=== PATIENT | male | born 1955 | race Caucasian/White ===

== ENCOUNTER → 2017-02-22 | Outpatient (CLI) | payer OTHER ==
[~2017-02-22] MED LIST: AGGRENOX 25 MG-1 CER PO; ATENOLOL25 MG PO; BAYER GENUINE325 MG PO; BROVANA15 MCG/2 M INH; CAMBIA50 MG PO; CRESTOR10 MG PO; IBUPROFEN200 M1 PO; NORFLEX100 MG PO; PIROXICAN20 MG PO; PRAVACHOL20 MG PO; PREDNISONE1 MG PO; PREDNISONE5 MG PO; PRILOSEC40 MG PO; PYRIDIUM200 MG PO; RELPAX40 MG PO; SYNTHROID,LEV100 MCG PO; VICODIN 5/500 505 MG PO; VITAMIN D400 I1 PO; ZETIA10 MG PO; ZONISAMIDE100 MG PO
== END | disposition home or self-care (01) ==
LOC: US 09:10
DX: M79.661 Pain in right lower leg (principal); R60.0 Localized edema

== ENCOUNTER → 2017-07-22 | Outpatient (CLI) | payer OTHER | END | disposition home or self-care (01) | LOC: RAD 13:23 | DX: A69.20 Lyme disease, unspecified (principal); M19.90 Unspecified osteoarthritis, unspecified site; Z79.52 Long term (current) use of systemic steroids; Z85.51 Personal history of malignant neoplasm of bladder ==

== ENCOUNTER → 2017-08-03 | Outpatient (CLI) | payer OTHER | END | disposition home or self-care (01) | LOC: RAD 11:24 | DX: M54.40 Lumbago with sciatica, unspecified side (principal) ==

== ENCOUNTER → 2017-08-27 | Outpatient (CLI) | payer OTHER | END | disposition home or self-care (01) | LOC: MRI 06:18 | DX: M51.26 Other intervertebral disc displacement, lumbar region (principal); M48.061 Spinal stenosis, lumbar region without neurogenic claudication; M47.896 Other spondylosis, lumbar region ==

== ENCOUNTER 2018-03-02 05:57 | Inpatient (IN) | payer OTHER ==
[~2018-03-02] VITALS: Ht 170.2 cm; Wt 96.3 kg
[2018-03-02] VITALS (15 sets, daily range): BP systolic 98–155; BP diastolic 52–92
[2018-03-02 06:19] LABS: BASO % 0.6 % (0.0-1.0); EOS # 0.3 10*3/uL (0.0-0.4); EOS % 4.2 % (1.0-4.0); HEMATOCRIT 41.3 % (42.0-52.0); HEMOGLOBIN 14.3 g/dl (14.0-18.0); LYMPH # 2.3 10*3/uL (1.3-4.4); LYMPH % 32.3 % (27.0-41.0); MEAN CELL VOLUME 92.4 fl (80.0-94.0); MEAN CORPUSCULAR HGB CONC 34.6 g/dl (33.0-37.0); MEAN PLATELET VOLUME 9.7 fl (9.6-12.3); MONO # 0.8 10*3/uL (0.1-1.0); MONO % 10.9 % (3.0-9.0); NEUT # 3.6 10*3/uL (2.3-7.9); NEUT % 51.4 % (47.0-73.0); PLATELET COUNT AUTOMATED 184 10*3/uL (130-400); RED BLOOD COUNT 4.47 10*6/uL (4.50-5.90); RED CELL DISTRI WIDTH 12.7 % (0-14.5)
[2018-03-02 06:25] LABS: ACT PARTIAL THROMBO TIME 23.5 SECONDS (20.8-31.5)
[2018-03-02] MEDS ORDERED: TIROSINT88 MCG PO (06:28)
[2018-03-02] MEDS ORDERED: MILLIPRED5 MG PO (06:29)
[2018-03-02 06:38] LABS: ALBUMIN 3.6 gm/dl (3.1-4.5); ALKALINE PHOSPHATASE 53 U/L (45-117); BUN 16 mg/dl (7-24); CHLORIDE 107 mmol/L (98-107); CREATININE 1.19 mg/dL (0.70-1.30); POTASSIUM 3.7 mmol/L (3.5-5.1); SGOT/AST 19 IU/L (3-35); SGPT/ALT 21 U/L (12-78); SODIUM 140 mmol/L (136-145); TOTAL PROTEIN 6.6 gm/dL (6.4-8.2)
[2018-03-02 06:39] LABS: TROPONIN I 0.042 ng/ml (<0.045)
[2018-03-03] VITALS: BP 116/79
[2018-03-03 06:26] LABS: BASO # 0.1 10*3/uL (0.0-0.1); BASO % 0.7 % (0.0-1.0); EOS # 0.3 10*3/uL (0.0-0.4); EOS % 3.6 % (1.0-4.0); HEMOGLOBIN 16.2 g/dl (14.0-18.0); LYMPH # 3.1 10*3/uL (1.3-4.4); LYMPH % 32.7 % (27.0-41.0); MEAN CELL VOLUME 94.2 fl (80.0-94.0); MEAN CORPUSCULAR HGB 32.2 pg (27.0-31.0); MEAN CORPUSCULAR HGB CONC 34.2 g/dl (33.0-37.0); MEAN PLATELET VOLUME 9.5 fl (9.6-12.3); MONO # 0.9 10*3/uL (0.1-1.0); MONO % 9.5 % (3.0-9.0); NEUT # 5.1 10*3/uL (2.3-7.9); NEUT % 53.3 % (47.0-73.0); PLATELET COUNT AUTOMATED 238 10*3/uL (130-400); RED BLOOD COUNT 5.03 10*6/uL (4.50-5.90); RED CELL DISTRI WIDTH 12.9 % (0-14.5); WHITE BLOOD COUNT 9.6 10*3/uL (4.8-10.8)
[2018-03-03 06:46] LABS: BUN 13 mg/dl (7-24); CHLORIDE 105 mmol/L (98-107); CHOLESTEROL 270 mg/dL (<200); CREATININE 1.26 mg/dL (0.70-1.30); HDL CHOLESTEROL 57 mg/dl (40-60); LDL CHOLESTEROL 157 mg/dL (9-159); PHOSPHOROUS 3.6 mg/dL (2.5-4.9); POTASSIUM 3.8 mmol/L (3.5-5.1); SODIUM 141 mmol/L (136-145); TRIGLYCERIDES 278 mg/dl (<150); VLDL CHOLESTEROL 56 mg/dL (6-40)
[2018-03-03 06:49] LABS: HEMATOCRIT 47.4 % (42.0-52.0)
[2018-03-03 06:52] LABS: THYROID STIM HORMONE (HS) 0.814 uIU/ml (0.358-4.75)
[2018-03-03 06:58] LABS: TROPONIN I 0.046 ng/ml (<0.045)
[2018-03-03 07:54] LABS: VITAMIN D, 25-HYDROXY 60.1 ng/mL (30-100)
[2018-03-03 08:00] VITALS: BP 130/83
[2018-03-03 12:00] VITALS: BP 127/80
[2018-03-03 16:00] VITALS: BP 137/84
[2018-03-03] MEDS ORDERED: FENOFIBRATE40 MG PO (16:49)
== END 2018-03-03 17:23 | disposition home or self-care (01) | DRG 313 ==
LOC: ED 05:57 → EDHOLD 06:39 → 4E 06:39
PROVIDERS: Emergency Medicine Emergency Medical Services; Student in an Organized Health Care Education/Training Program
PROC: 4A02XM4 Measurement of Cardiac Total Activity, External Approach (ICD-10-PCS; principal; 2018-03-03)
DX: R07.9 Chest pain, unspecified (principal); I25.10 Atherosclerotic heart disease of native coronary artery without angina pectoris; D72.1 Eosinophilia; I25.2 Old myocardial infarction; E83.51 Hypocalcemia; R74.8 Abnormal levels of other serum enzymes; R73.9 Hyperglycemia, unspecified; D72.821 Monocytosis (symptomatic); E78.5 Hyperlipidemia, unspecified; E03.9 Hypothyroidism, unspecified; H40.9 Unspecified glaucoma; G43.909 Migraine, unspecified, not intractable, without status migrainosus; Z88.8 Allergy status to other drugs, medicaments and biological substances; Z79.899 Other long term (current) drug therapy; Z79.82 Long term (current) use of aspirin; Z85.51 Personal history of malignant neoplasm of bladder; Z86.73 Personal history of transient ischemic attack (TIA), and cerebral infarction without residual deficits; Z82.49 Family history of ischemic heart disease and other diseases of the circulatory system; Z83.3 Family history of diabetes mellitus; Z84.89 Family history of other specified conditions; Z80.8 Family history of malignant neoplasm of other organs or systems; Z90.49 Acquired absence of other specified parts of digestive tract

== ENCOUNTER 2018-05-31 10:41 | Emergency (ER) | payer OTHER ==
[~2018-05-31] VITALS: Wt 95.3 kg
[~2018-05-31 10:41] MED LIST changes: +FENOFIBRATE40 MG PO; +MILLIPRED5 MG PO; +TIROSINT88 MCG PO
[2018-05-31 10:44] VITALS: BP 132/76
== END 2018-05-31 12:50 | disposition home or self-care (01) ==
LOC: ED 10:41
DX: M70.841 Other soft tissue disorders related to use, overuse and pressure, right hand (principal); Z88.8 Allergy status to other drugs, medicaments and biological substances; Z79.899 Other long term (current) drug therapy; Z90.49 Acquired absence of other specified parts of digestive tract; Y93.H3 Activity, building and construction

== ENCOUNTER 2018-11-23 16:45 | Inpatient (IN) | payer OTHER ==
[~2018-11-23] VITALS: Ht 170.1 cm; Wt 96.7 kg
--- NOTE | ~2018-11-23 | EKG ---
[place], [place] ELECTROCARDIOGRAM REPORT NAME: MAX VEGA UNIT #: [id number] ROOM: 403 DOCTOR: DEEPALI DRAFT REPORT BIRTHDATE: [birth year] [facility] Test Date: 2018-11-23 Test Time: 22:42:43 Pat Name: MAX VEGA Department: Room: 403 Gender: M Mud Worker: Beth Tang : 1955 Requested By: AYUSH COLE Order Number: [id number] Reading MD: Jules Carpenter MD Measurements Intervals [place] Rate: 56 P: 51 RI: 176 QRS: 4 QRSD: 79 T: 14 QT: 400 QTc: 387 Interpretive Statements Sinus rhythm Baseline wander in lead(s) V2,V3 No change from earlier ECG this date Electronically Signed On 11-24-2018 17:10:55 PST by Jules Carpenter MD CM:EKGRPT:ELECTROCARDIOGRAM REPORT 1710 AYUSH PALUMBO DRAFT REPORT AYUSH COLE MD
--- NOTE | ~2018-11-23 | EKG ---
[place], [place] ELECTROCARDIOGRAM REPORT NAME: MAX VEGA UNIT #: [id number] ROOM: 403 DOCTOR: DEEPALI DRAFT REPORT BIRTHDATE: [birth year] [facility] Test Date: 2018-11-24 Test Time: 04:32:56 Pat Name: MAX VEGA Department: Room: 403 2 Gender: M Boot Turner: Jamar Chavez : 1955 Requested By: WOODY RILEY Order Number: [id number] Reading MD: Jules Carpenter MD Measurements Intervals [place] Rate: 81 P: 45 ID: 169 QRS: 5 QRSD: 82 T: 29 QT: 370 QTc: 430 Interpretive Statements Sinus rhythm Probable left atrial enlargement Baseline wander in lead(s) V3 No change from earlier ECG this date Electronically Signed On 11-24-2018 17:15:01 PST by Jules Carpenter MD CM:[email or web address]:ELECTROCARDIOGRAM REPORT [id number] 1715 WOODY CRUZ DRAFT REPORT WOODY RILEY DO
--- NOTE | ~2018-11-23 | EKG ---
[place], [place] ELECTROCARDIOGRAM REPORT NAME: MAX VEGA UNIT #: [id number] ROOM: 403 DOCTOR: DEEPALI DRAFT REPORT BIRTHDATE: [birth year] [facility] Test Date: 2018-11-23 Test Time: 19:32:32 Pat Name: MAX VEGA Department: Room: 403 Gender: M Medical Safety Director: Beth Tang : 1955 Requested By: AYUSH COLE Order Number: [id number] Reading MD: Jules Carpenter MD Measurements Intervals [place] Rate: 62 P: 42 NE: 168 QRS: -5 QRSD: 81 T: 15 QT: 393 QTc: 399 Interpretive Statements Sinus rhythm Probable left atrial enlargement Baseline wander in lead(s) V3 No change from earlier ECG this date Electronically Signed On 11-24-2018 17:02:14 PST by Jules Carpenter MD CM:EKGRPT:ELECTROCARDIOGRAM REPORT 31 AYUSH PALUMBO DRAFT REPORT AYUSH COLE MD
--- NOTE | ~2018-11-23 | EKG ---
[place], [place] ELECTROCARDIOGRAM REPORT NAME: MAX VEGA UNIT #: [id number] ROOM: 403 DOCTOR: DEEPALI DRAFT REPORT BIRTHDATE: [birth year] [facility] Test Date: 2018-11-23 Test Time: 16:47:31 Pat Name: MAX VEGA Department: Room: 403 Gender: M Data Entry Specialist: Beth Tang : 1955 Requested By: AYUSH COLE Order Number: [id number] Reading MD: Jules Carpenter MD Measurements Intervals [place] Rate: 64 P: 47 KS: 175 QRS: 0 QRSD: 82 T: 17 QT: 380 QTc: 392 Interpretive Statements Sinus rhythm Probable left atrial enlargement Baseline wander in lead(s) II,III,aVF Electronically Signed On 11-24-2018 16:55:49 PST by Jules Carpenter MD CM:EKGRPT:ELECTROCARDIOGRAM REPORT 1647 1655 AYUSH COLE MD EPIPHIVONNE DRAFT REPORT AYUSH COLE MD
[2018-11-23 16:45] VITALS: BP 147/94
[2018-11-23 16:50] VITALS: BP 146/94
[2018-11-23 17:22] LABS: BASO % 0.5 % (0.0-1.0); EOS # 0.2 10*3/uL (0.0-0.4); EOS % 2.4 % (1.0-4.0); HEMATOCRIT 46.5 % (42.0-52.0); HEMOGLOBIN 16.4 g/dl (14.0-18.0); LYMPH # 2.5 10*3/uL (1.3-4.4); LYMPH % 29.7 % (27.0-41.0); MEAN CELL VOLUME 94.9 fl (80.0-94.0); MEAN CORPUSCULAR HGB 33.5 pg (27.0-31.0); MEAN CORPUSCULAR HGB CONC 35.3 g/dl (33.0-37.0); MEAN PLATELET VOLUME 9.7 fl (9.6-12.3); MONO # 0.8 10*3/uL (0.1-1.0); MONO % 8.8 % (3.0-9.0); NEUT % 58.4 % (47.0-73.0); PLATELET COUNT AUTOMATED 215 10*3/uL (130-400); RED CELL DISTRI WIDTH 12.8 % (0-14.5); WHITE BLOOD COUNT 8.5 10*3/uL (4.8-10.8)
[2018-11-23 17:26] VITALS: BP 138/92
[2018-11-23 17:30] LABS: ACT PARTIAL THROMBO TIME 22.4 SECONDS (20.8-31.5); INTERNATIONAL NORM RATIO 0.9 (2.0-3.5)
[2018-11-23 17:38] LABS: ALBUMIN 4.1 gm/dl (3.1-4.5); ALKALINE PHOSPHATASE 65 U/L (45-117); BUN 12 mg/dl (7-24); CHLORIDE 106 mmol/L (98-107); CREATININE 1.25 mg/dL (0.70-1.30); POTASSIUM 4.3 mmol/L (3.5-5.1); SGOT/AST 14 IU/L (3-35); SGPT/ALT 28 U/L (12-78); SODIUM 141 mmol/L (136-145); TOTAL PROTEIN 7.7 gm/dL (6.4-8.2)
[2018-11-23 17:42] LABS: TROPONIN I 0.047 ng/ml (<0.045)
--- NOTE | 2018-11-23 17:43 | NUR ---
STEPHY DOMINGUEZ NOTIFIED OF CRITICAL LAB RESULT
[2018-11-23 18:22] VITALS: BP 141/89
--- NOTE | 2018-11-23 18:26 | NUR ---
ATTEMPTED TO CALL AND INFORM NURSE THAT PATIENT WOULD BE TRANSPORTED UPSTAIRS.... NO ANSWER.
[2018-11-23 19:22] VITALS: BP 140/90
--- NOTE | 2018-11-23 19:22 | NUR ---
ATTEMPT TO CALL RN AGAIN WITHOUT ANSWER. PT IS STABLE AND READY FOR TRANSPORT TO ADMISSION BED.
--- NOTE | 2018-11-23 19:51 | NUR ---
Time: 1947 A 63 year old MALE admitted to 4E under services of RALPH BERNARDO DO. Pt. arrived via wheel chair from ER. Chief complaint: CHEST PAIN. OLGA GONZALES
[2018-11-23] MEDS ORDERED: CAMBIA50 MG PO (19:57)
[2018-11-23] MEDS ORDERED: VITAMIN D32000 UNI1 PO (19:58)
[2018-11-23] MEDS ORDERED: ELETRIPTAN HBR40 MG PO (19:58)
[2018-11-23 20:00] VITALS: BP 127/91
--- NOTE | 2018-11-23 20:00 | NUR ---
MED REC COMPLETED WITH PATIENT ALERT AND ORIENTED TO PERSON PLACE AND TIME. AT BEDSIDE
--- NOTE | 2018-11-23 20:18 | NUR ---
DR RILEY AWARE OF CRITICAL TROPONIN. ALSO MADE AWARE OF MED REC BEING UP TO DATE
--- NOTE | 2018-11-23 20:21 | NUR ---
DR SOSA'S ANSWERING SERVICE AWARE OF CONSULT. CALL BACK REQUESTED
--- NOTE | 2018-11-23 20:31 | NUR ---
DR SOSA AWARE OF CONSULT. ORDERS TAKEN
--- NOTE | 2018-11-23 23:01 | NUR ---
DR RILEY AWARE OF CRITICAL TROPONIN
[2018-11-24] VITALS: BP 123/83
--- NOTE | 2018-11-24 04:27 | NUR ---
MEDICATED WITH PRN TYLENOL FOR C/O HEADACHE RATED 9/10 ON A 0/10 PAIN SCALE
--- NOTE | 2018-11-24 04:29 | NUR ---
2L 02 NC APPLIED FOR C/O CHEST PAIN. STAT EKG ORDERED.
[2018-11-24 04:31] VITALS: BP 117/79
--- NOTE | 2018-11-24 04:31 | NUR ---
DR RILEY AWARE OF PATIENT C/O NAUSEA, AND VOMITTING. STATES HE WILL COME AND SEE THE PATIENT
--- NOTE | 2018-11-24 04:38 | NUR ---
DR RILEY AT BEDSIDE
--- NOTE | 2018-11-24 05:10 | NUR ---
PATIENT HAD LARGE EMESIS. GREEN AND YELLOW IN COLOR. STATES HEADACHE HAS BEEN RELIEVED A LITTLE BIT. DENIES CHEST PAIN.
--- NOTE | 2018-11-24 05:39 | NUR ---
PATIENT STATSE THAT HE WOULD LIKE TO WAIT TO PUT THE NITRO PASTE ON. CURRENT NITRO PASTE REMOVED. PATIENT STATES THE TYLENOL IS HELPING WITH HIS HEADACHE. DENIES CHEST PAIN AT THIS TIME. WILL MONITOR. BED IN LOWEST POSITION. CALL LIGHT IN REACH
[2018-11-24 06:05] LABS: BUN 15 mg/dl (7-24); CHLORIDE 105 mmol/L (98-107); PHOSPHOROUS 3.8 mg/dL (2.5-4.9); POTASSIUM 3.9 mmol/L (3.5-5.1); SODIUM 140 mmol/L (136-145)
[2018-11-24 06:07] LABS: TROPONIN I 0.041 ng/ml (<0.045)
[2018-11-24 06:08] LABS: BASO # 0.1 10*3/uL (0.0-0.1); BASO % 0.7 % (0.0-1.0); EOS # 0.2 10*3/uL (0.0-0.4); EOS % 2.6 % (1.0-4.0); HEMATOCRIT 43.8 % (42.0-52.0); LYMPH # 1.7 10*3/uL (1.3-4.4); LYMPH % 19.9 % (27.0-41.0); MEAN CELL VOLUME 96.5 fl (80.0-94.0); MEAN CORPUSCULAR HGB CONC 34.2 g/dl (33.0-37.0); MEAN PLATELET VOLUME 9.9 fl (9.6-12.3); MONO # 0.6 10*3/uL (0.1-1.0); MONO % 7.5 % (3.0-9.0); NEUT # 5.9 10*3/uL (2.3-7.9); NEUT % 68.8 % (47.0-73.0); PLATELET COUNT AUTOMATED 190 10*3/uL (130-400); RED BLOOD COUNT 4.54 10*6/uL (4.50-5.90); RED CELL DISTRI WIDTH 13.1 % (0-14.5); WHITE BLOOD COUNT 8.5 10*3/uL (4.8-10.8)
[2018-11-24 08:00] VITALS: BP 142/78
--- NOTE | 2018-11-24 09:00 | NUR ---
Cook Short Order in to talk to patient. Patient states lives at home with . There are few steps in the home. Physician: ariela torres Pharmacy: [facility]: none Patient's level of ADLs: INDEPENDENT Patient has working utilities: all working DME: none Follow-up physician's appointment after d/c: will be made by hospitalist nurse director upon discharge Does patient want to access PORTAL?: no Discharge plan discussed with patient, patient lives at home with , he is independent in adls and ambulation works, drives,patient states he will be. going home when able and denies any home needs ELE SHAIKH
--- NOTE | 2018-11-24 09:15 | NUR ---
PATIENT HAD EMESIS. APPROX 250ML. WILL MONITOR.
--- NOTE | 2018-11-24 09:40 | NUR ---
ZOFRAN ADMINISTERED FOR NAUSEA AND VOMITING. WILL MONITOR FOR EFFECTIVENESS.
--- NOTE | 2018-11-24 10:38 | NUR ---
PATIENT REQUESTING MEDICATION FOR HEADACHE. NORCO ADMINISTERED PRESCRIBED. WILL MONITOR FOR EFFECTIVENESS.
[2018-11-24 12:00] VITALS: BP 140/84
--- NOTE | 2018-11-24 12:00 | NUR ---
PATIENT REFUSING NITRO-NID AT THIS TIME. STATES THAT IT GIVES HIM A HEADACHE AND NAUSEA. DR RYAN AWARE.
--- NOTE | 2018-11-24 12:16 | NUR ---
PHENERGAN ADMINISTERED FOR NAUSEA/VOMITING. WILL MONITOR FOR EFFECTIVENESS.
[2018-11-24 16:00] VITALS: BP 126/73
[2018-11-24 20:00] VITALS: BP 138/90
[2018-11-25] VITALS: BP 118/84
--- NOTE | 2018-11-25 06:37 | NUR ---
NURSE TO NURSE REPORT GIVEN TO NADIRA AT [facility] CLAIM PROCESSOR AT THIS TIME. ALL QUESTIONS ANSWERED
[2018-11-25 07:33] LABS: BUN 15 mg/dl (7-24); CHLORIDE 105 mmol/L (98-107); CREATININE 1.31 mg/dL (0.70-1.30); POTASSIUM 3.9 mmol/L (3.5-5.1); SODIUM 141 mmol/L (136-145)
--- NOTE | 2018-11-25 07:48 | NUR ---
PATIENT TRANSPORTED TO [facility]IA [facility]. BELONGINGS SENT WITH PATIENT. MONITOR REMOVED.
== END 2018-11-25 07:48 | disposition other institution (70) | DRG 303 ==
LOC: ED 16:45 → EDHOLD 18:05 → 4E 18:05
PROVIDERS: Emergency Medicine; Student in an Organized Health Care Education/Training Program; ADMIT Internal Medicine
DX: I25.110 Atherosclerotic heart disease of native coronary artery with unstable angina pectoris (principal); I24.8 Other forms of acute ischemic heart disease; R07.9 Chest pain, unspecified; D75.89 Other specified diseases of blood and blood-forming organs; E83.41 Hypermagnesemia; R00.1 Bradycardia, unspecified; H40.9 Unspecified glaucoma; E78.5 Hyperlipidemia, unspecified; E03.9 Hypothyroidism, unspecified; M35.3 Polymyalgia rheumatica; C67.9 Malignant neoplasm of bladder, unspecified; Z90.49 Acquired absence of other specified parts of digestive tract; G56.00 Carpal tunnel syndrome, unspecified upper limb; Z84.1 Family history of disorders of kidney and ureter; Z83.3 Family history of diabetes mellitus; Z88.9 Allergy status to unspecified drugs, medicaments and biological substances; Z79.82 Long term (current) use of aspirin; G43.909 Migraine, unspecified, not intractable, without status migrainosus

== ENCOUNTER → 2019-06-08 | Outpatient (CLI) | payer OTHER ==
[~2019-06-08] MED LIST changes: +ELETRIPTAN HBR40 MG PO; +VITAMIN D32000 UNI1 PO
[2019-06-08 08:35] LABS: HEMATOCRIT 47.4 % (42.0-52.0); HEMOGLOBIN 15.9 g/dl (14.0-18.0); MEAN CELL VOLUME 99.2 fl (80.0-94.0); MEAN CORPUSCULAR HGB 33.3 pg (27.0-31.0); MEAN CORPUSCULAR HGB CONC 33.5 g/dl (33.0-37.0); MEAN PLATELET VOLUME 10.3 fl (9.6-12.3); RED BLOOD COUNT 4.78 10*6/uL (4.50-5.90); RED CELL DISTRI WIDTH 12.7 % (0-14.5); WHITE BLOOD COUNT 9.6 10*3/uL (4.8-10.8)
[2019-06-08 08:42] LABS: ALBUMIN 3.7 gm/dl (3.1-4.5); ALKALINE PHOSPHATASE 59 U/L (45-117); BUN 13 mg/dl (7-24); CHLORIDE 108 mmol/L (98-107); CHOLESTEROL 229 mg/dL (<200); CREATININE 1.23 mg/dL (0.70-1.30); HDL CHOLESTEROL 72 mg/dl (40-60); LDL CHOLESTEROL 141 mg/dL (9-159); POTASSIUM 4.5 mmol/L (3.5-5.1); SGOT/AST 14 IU/L (3-35); SGPT/ALT 20 U/L (12-78); SODIUM 141 mmol/L (136-145); TOTAL PROTEIN 6.9 gm/dL (6.4-8.2); TRIGLYCERIDES 80 mg/dl (<150); VLDL CHOLESTEROL 16 mg/dL (6-40)
[2019-06-08 09:02] LABS: FREE T4 0.72 ng/dl (0.76-1.46)
== END | disposition home or self-care (01) ==
LOC: LAB 07:19
PROVIDERS: Physician Assistant
DX: Z12.5 Encounter for screening for malignant neoplasm of prostate (principal); R07.9 Chest pain, unspecified

== ENCOUNTER → 2021-01-03 | Outpatient (CLI) | payer OTHER | END | disposition home or self-care (01) | LOC: COVID19 08:16 | PROVIDERS: ATTEND Surgery | DX: Z01.812 Encounter for preprocedural laboratory examination (principal); Z20.822 Contact with and (suspected) exposure to COVID-19 ==

== ENCOUNTER → 2021-01-08 | Day surgery (SDC) | payer OTHER ==
[~2021-01-08] VITALS: Ht 170.1 cm; Wt 92.1 kg
[2021-01-08 06:47] VITALS: BP 123/83
[2021-01-08 07:44] VITALS: BP 111/61
[2021-01-08 08:00] VITALS: BP 123/83
[2021-01-08 08:26] VITALS: BP 129/93
== END ==
LOC: SDC 10-30 08:45
PROVIDERS: ATTEND Surgery
DX: K62.5 Hemorrhage of anus and rectum (principal); D12.0 Benign neoplasm of cecum; K57.30 Diverticulosis of large intestine without perforation or abscess without bleeding; K64.8 Other hemorrhoids; I10 Essential (primary) hypertension; I25.10 Atherosclerotic heart disease of native coronary artery without angina pectoris; Z86.73 Personal history of transient ischemic attack (TIA), and cerebral infarction without residual deficits; G43.909 Migraine, unspecified, not intractable, without status migrainosus; E03.9 Hypothyroidism, unspecified; Z79.899 Other long term (current) drug therapy

== ENCOUNTER 2021-03-19 08:30 | Emergency (ER) | payer OTHER ==
[~2021-03-19] VITALS: Ht 170.1 cm; Wt 90.7 kg
[2021-03-19 08:35] VITALS: BP 132/84
[2021-03-19] MEDS ORDERED: PREDNISONE20 M1 PO (14:45)
[2021-03-19] MEDS ORDERED: METHOCARBAMOL500 M1 PO (14:45)
== END 2021-03-19 15:03 | disposition home or self-care (01) ==
LOC: ED 08:30
DX: S39.91XA Unspecified injury of abdomen, initial encounter (principal); Z88.8 Allergy status to other drugs, medicaments and biological substances; Z79.899 Other long term (current) drug therapy; Z79.82 Long term (current) use of aspirin; Z98.890 Other specified postprocedural states; Z90.49 Acquired absence of other specified parts of digestive tract; X58.XXXA Exposure to other specified factors, initial encounter; Y93.89 Activity, other specified; Y92.89 Other specified places as the place of occurrence of the external cause; Y99.8 Other external cause status

== ENCOUNTER 2021-08-17 09:26 | Emergency (ER) | payer OTHER ==
[~2021-08-17] VITALS: Ht 170.1 cm; Wt 88.5 kg
[~2021-08-17 09:26] MED LIST changes: +METHOCARBAMOL500 M1 PO; +PREDNISONE20 M1 PO
[2021-08-17 09:30] VITALS: BP 135/80
[2021-08-17 10:03] LABS: BASO % 0.4 % (0.0-1.0); EOS # 0.1 10*3/uL (0.0-0.4); EOS % 0.5 % (1.0-4.0); HEMATOCRIT 44.9 % (42.0-52.0); LYMPH # 1.7 10*3/uL (1.3-4.4); LYMPH % 18.3 % (27.0-41.0); MEAN CELL VOLUME 98.5 fl (80.0-94.0); MEAN CORPUSCULAR HGB 33.1 pg (27.0-31.0); MEAN CORPUSCULAR HGB CONC 33.6 g/dl (33.0-37.0); MEAN PLATELET VOLUME 9.9 fl (9.6-12.3); MONO # 0.6 10*3/uL (0.1-1.0); MONO % 6.5 % (3.0-9.0); NEUT # 6.9 10*3/uL (2.3-7.9); PLATELET COUNT AUTOMATED 202 10*3/uL (130-400); RED BLOOD COUNT 4.56 10*6/uL (4.50-5.90); RED CELL DISTRI WIDTH 12.3 % (0-14.5); WHITE BLOOD COUNT 9.4 10*3/uL (4.8-10.8)
[2021-08-17 10:22] LABS: ALBUMIN 3.8 gm/dl (3.1-4.5); ALKALINE PHOSPHATASE 54 U/L (45-117); BUN 26 mg/dl (7-24); CHLORIDE 109 mmol/L (98-107); CREATININE 1.19 mg/dL (0.70-1.30); POTASSIUM 4.1 mmol/L (3.5-5.1); SGOT/AST 25 IU/L (3-35); SGPT/ALT 33 U/L (12-78); SODIUM 140 mmol/L (136-145); TOTAL PROTEIN 7.3 gm/dL (6.4-8.2); TROPONIN I 0.024 ng/ml (<0.045)
[2021-08-17 10:24] LABS: ACT PARTIAL THROMBO TIME 25.5 SECONDS (20.0-32.1)
== END 2021-08-17 13:15 | disposition home or self-care (01) ==
LOC: ED 09:26
PROVIDERS: Emergency Medicine
DX: R07.1 Chest pain on breathing (principal); Z88.8 Allergy status to other drugs, medicaments and biological substances; Z79.899 Other long term (current) drug therapy

== ENCOUNTER → 2021-08-28 | Outpatient (CLI) | payer OTHER | END | disposition home or self-care (01) | LOC: CARD 00:07 | PROVIDERS: ATTEND Internal Medicine Cardiovascular Disease | DX: I20.9 Angina pectoris, unspecified (principal) ==

== ENCOUNTER 2022-06-28 19:36 | Emergency (ER) | payer OTHER ==
[2022-06-28 19:56] VITALS: BP 113/97
[2022-06-28 21:01] LABS: BASO # 0.1 10*3/uL (0.0-0.1); BASO % 0.6 % (0.0-1.0); EOS # 0.1 10*3/uL (0.0-0.4); EOS % 1.1 % (1.0-4.0); HEMATOCRIT 40.8 % (42.0-52.0); LYMPH # 1.8 10*3/uL (1.3-4.4); LYMPH % 20.6 % (27.0-41.0); MEAN CORPUSCULAR HGB 33.2 pg (27.0-31.0); MEAN CORPUSCULAR HGB CONC 34.6 g/dl (33.0-37.0); MEAN PLATELET VOLUME 9.2 fl (9.6-12.3); MONO # 0.8 10*3/uL (0.1-1.0); MONO % 9.6 % (3.0-9.0); NEUT # 5.9 10*3/uL (2.3-7.9); NEUT % 67.5 % (47.0-73.0); PLATELET COUNT AUTOMATED 204 10*3/uL (130-400); RED BLOOD COUNT 4.25 10*6/uL (4.50-5.90); RED CELL DISTRI WIDTH 12.7 % (0-14.5); WHITE BLOOD COUNT 8.8 10*3/uL (4.8-10.8)
[2022-06-28 21:17] LABS: ALKALINE PHOSPHATASE 57 U/L (45-117); BUN 22 mg/dl (7-24); CHLORIDE 111 mmol/L (98-107); CREATININE 1.24 mg/dL (0.70-1.30); SGOT/AST 18 IU/L (3-35); SGPT/ALT 32 U/L (12-78); SODIUM 141 mmol/L (136-145); TOTAL PROTEIN 6.4 gm/dL (6.4-8.2)
[2022-06-28] MEDS ORDERED: CEPHALEXIN500 M1 PO (23:39)
== END 2022-06-28 23:50 | disposition home or self-care (01) ==
LOC: ED 19:36
PROVIDERS: Emergency Medicine
DX: L03.115 Cellulitis of right lower limb (principal); G43.909 Migraine, unspecified, not intractable, without status migrainosus; I25.2 Old myocardial infarction; E03.9 Hypothyroidism, unspecified; Z88.8 Allergy status to other drugs, medicaments and biological substances; Z79.899 Other long term (current) drug therapy; Z86.73 Personal history of transient ischemic attack (TIA), and cerebral infarction without residual deficits; Z90.49 Acquired absence of other specified parts of digestive tract; Z98.890 Other specified postprocedural states

== ENCOUNTER 2022-10-24 11:27 | Observation (INO) | payer OTHER, MEDICARE ==
[~2022-10-24] VITALS: Ht 170.1 cm; Wt 90.8 kg
[2022-10-24] VITALS (7 sets, daily range): BP systolic 134–150; BP diastolic 79–98
[~2022-10-24 11:27] MED LIST changes: +CEPHALEXIN500 M1 PO; -VITAMIN D32000 UNI1 PO; +VITAMIN D350 MC2 PO
[2022-10-24 12:16] LABS: BASO % 0.4 % (0.0-1.0); EOS # 0.1 10*3/uL (0.0-0.4); EOS % 1.3 % (1.0-4.0); HEMATOCRIT 46.9 % (42.0-52.0); LYMPH # 2.2 10*3/uL (1.3-4.4); LYMPH % 21.9 % (27.0-41.0); MEAN CELL VOLUME 97.7 fl (80.0-94.0); MEAN CORPUSCULAR HGB 33.3 pg (27.0-31.0); MEAN CORPUSCULAR HGB CONC 34.1 g/dl (33.0-37.0); MEAN PLATELET VOLUME 9.3 fl (9.6-12.3); MONO # 0.8 10*3/uL (0.1-1.0); MONO % 7.6 % (3.0-9.0); NEUT # 6.8 10*3/uL (2.3-7.9); NEUT % 68.3 % (47.0-73.0); PLATELET COUNT AUTOMATED 211 10*3/uL (130-400); RED CELL DISTRI WIDTH 12.6 % (0-14.5); WHITE BLOOD COUNT 9.9 10*3/uL (4.8-10.8)
[2022-10-24 12:45] LABS: LIPASE 33 U/L (12-53)
[2022-10-24 12:48] LABS: ALKALINE PHOSPHATASE 55 U/L (46-116); BUN 13 mg/dl (9-23); CHLORIDE 103 mmol/L (98-107); CREATININE 1.28 mg/dL (0.70-1.30); POTASSIUM 4.5 mmol/L (3.4-5.1); SGPT/ALT 21 U/L (10-49); SODIUM 137 mmol/L (136-145)
[2022-10-24 12:55] LABS: ACT PARTIAL THROMBO TIME 25.1 SECONDS (20.0-32.1)
[2022-10-24] MEDS ORDERED: ASPIRIN-DIPYRI1 EACH PO (15:48)
[2022-10-24] MEDS ORDERED: PREDNISONE5 MG PO (15:48)
[2022-10-24] MEDS ORDERED: LEVOTHYROXINE100 MC1 PO (15:48)
[2022-10-25] VITALS: BP 121/79
[2022-10-25 02:01] LABS: BILIRUBIN Negative (Negative); BLOOD Negative (Negative); CLARITY Clear (Clear); COLOR Yellow (Yellow); GLUCOSE Negative (Negative); KETONE Trace (Negative); LEUKO ESTERASE Negative (Negative); NITRITE Negative (Negative); PH 6.5 (4.5-8.0); SPECIFIC GRAVITY >= 1.030 (1.001-1.030)
[2022-10-25 02:11] LABS: WBC 0-2 wbc/hpf (0-5)
[2022-10-25 07:22] LABS: BASO # 0.1 10*3/uL (0.0-0.1); BASO % 0.7 % (0.0-1.0); EOS # 0.2 10*3/uL (0.0-0.4); EOS % 2.5 % (1.0-4.0); HEMATOCRIT 46.4 % (42.0-52.0); LYMPH # 1.3 10*3/uL (1.3-4.4); LYMPH % 16.4 % (27.0-41.0); MEAN CELL VOLUME 96.5 fl (80.0-94.0); MEAN CORPUSCULAR HGB 33.1 pg (27.0-31.0); MEAN CORPUSCULAR HGB CONC 34.3 g/dl (33.0-37.0); MONO # 0.6 10*3/uL (0.1-1.0); MONO % 8.1 % (3.0-9.0); NEUT # 5.5 10*3/uL (2.3-7.9); NEUT % 71.9 % (47.0-73.0); PLATELET COUNT AUTOMATED 212 10*3/uL (130-400); RED BLOOD COUNT 4.81 10*6/uL (4.50-5.90); RED CELL DISTRI WIDTH 12.6 % (0-14.5); WHITE BLOOD COUNT 7.6 10*3/uL (4.8-10.8)
[2022-10-25 07:41] LABS: BUN 11 mg/dl (9-23); CHLORIDE 103 mmol/L (98-107); CHOLESTEROL 247 mg/dL (<200); CREATININE 1.05 mg/dL (0.70-1.30); FREE T4 1.03 ng/dl (0.89-1.76); LDL CHOLESTEROL 161 mg/dL (9-159); SODIUM 135 mmol/L (136-145); THYROID STIM HORMONE (HS) 2.189 uIU/ml (0.550-4.780); TRIGLYCERIDES 112 mg/dl (<150)
[2022-10-25 08:00] VITALS: BP 130/88
[2022-10-25 12:00] VITALS: BP 124/90
[2022-10-25 16:00] VITALS: BP 108/75
[2022-10-25 20:00] VITALS: BP 125/79
[2022-10-26] VITALS: BP 105/76
[2022-10-26 08:00] VITALS: BP 132/96
[2022-10-26] MEDS ORDERED: ASPIRIN CHILDRE81 MG PO (11:40)
[2022-10-26 12:00] VITALS: BP 109/83
== END 2022-10-26 12:29 | disposition home or self-care (01) ==
LOC: ED 11:27 → 5E 14:09 → EDHOLD 14:09 → 5E 14:09 → EDHOLD 14:58 → 5E 20:01
PROVIDERS: Emergency Medicine; Student in an Organized Health Care Education/Training Program; ADMIT Internal Medicine; ATTEND Internal Medicine
DX: I63.9 Cerebral infarction, unspecified (principal); R73.9 Hyperglycemia, unspecified; R42 Dizziness and giddiness; E66.9 Obesity, unspecified; E78.5 Hyperlipidemia, unspecified; M35.3 Polymyalgia rheumatica; G43.909 Migraine, unspecified, not intractable, without status migrainosus; H40.9 Unspecified glaucoma; Z88.8 Allergy status to other drugs, medicaments and biological substances; Z79.82 Long term (current) use of aspirin; Z79.899 Other long term (current) drug therapy; Z90.49 Acquired absence of other specified parts of digestive tract; Z98.890 Other specified postprocedural states; Z68.30 Body mass index [BMI] 30.0-30.9, adult

== ENCOUNTER → 2023-10-14 | Outpatient (CLI) | payer MEDICARE ==
[~2023-10-14] MED LIST changes: +ASPIRIN CHILDRE81 MG PO; +ASPIRIN-DIPYRI1 EACH PO; +LEVOTHYROXINE100 MC1 PO
== END | disposition home or self-care (01) ==
LOC: CARD
PROVIDERS: ATTEND Internal Medicine Cardiovascular Disease
DX: I20.9 Angina pectoris, unspecified (principal)

== ENCOUNTER → 2024-03-30 | Outpatient (CLI) | payer MEDICARE ==
[~2024-03-30] MED LIST changes: +Technetium Tc 99M Tetrofosmi 0.23 MG KIT IJ SCH; +[UNRECOGNIZED DRUG - OTHER] PO
== END | disposition home or self-care (01) ==
LOC: CARD 00:24
PROVIDERS: ATTEND Internal Medicine Cardiovascular Disease
DX: I10 Essential (primary) hypertension (principal); E78.5 Hyperlipidemia, unspecified; I20.9 Angina pectoris, unspecified

== ENCOUNTER → 2024-04-14 | Outpatient (CLI) | payer MEDICARE ==
[~2024-04-14] MED LIST changes: -Technetium Tc 99M Tetrofosmi 0.23 MG KIT IJ SCH
== END | disposition home or self-care (01) ==
LOC: CARD 08:57
PROVIDERS: ATTEND Internal Medicine Cardiovascular Disease
DX: R55 Syncope and collapse (principal)